=== PATIENT | female | born 1935 | race Caucasian/White ===

== ENCOUNTER 2024-03-24 12:34 | Inpatient (IN) | payer BC, MEDICARE ==
[~2024-03-24] VITALS: Ht 165.1 cm; Wt 52.7 kg
[2024-03-24] MEDS ORDERED: VANCOMYCIN IV 200 ML ONE (13:05)
[2024-03-24] MEDS ORDERED: CEFTRIAXONE /D5W 50ML IVPB **ER PYXIS IV ONE (13:06)
[2024-03-24 13:07] LABS: ABG BASE EXCESS 4.2 mmol/L (-2.0-3.0); ABG HCO3 29.4 mmol/L (21.0-28.0); ABG PCO2 46.5 mmHg (32.0-45.0); ABG PH 7.419 (7.350-7.450); ABG PO2 382.1 mmHg (83.0-108.0); ABG SITE RIGHT RADIAL; ABG TOTAL HEMOGLOBIN 13.1 G/dL (12.0-16.0); AaDO2 99.8 mmHg; COHb 0.2 % (0.5-1.5); MetHb 0.6 % (0.0-1.5)
[2024-03-24 13:12] LABS: BASOPHILS % (AUTO) 0.7 % (0.0-2.0); DIFFERENTIAL COMMENT 1; HEMATOCRIT 36.3 % (31.2-41.9); HEMOGLOBIN 11.9 g/dL (10.9-14.3); LYMPHOCYTES # (AUTO) 0.2 K/uL (0.8-4.8); LYMPHOCYTES % (AUTO) 5.2 % (20.5-51.5); MEAN CORPUSCULAR HEMOGLOBIN 28.8 uug (24.7-32.8); MEAN CORPUSCULAR HGB CONC 33 g/dL (32.3-35.6); MEAN CORPUSCULAR VOLUME 88.2 fL (75.5-95.3); MONOCYTES # (AUTO) 0.6 K/uL (0.1-1.30); NEUTROPHILS # (AUTO) 3.9 K/uL (1.8-8.9); NEUTROPHILS % (AUTO) 81.1 % (38.5-71.5); PLATELET COUNT (AUTO) 194 K/uL (179-408); RED BLOOD CELL COUNT(AUTO) 4.12 MIL/uL (3.63-4.92); RED CELL DISTRIBUTION WIDTH 14.7 % (12.3-17.7); WHITE BLOOD COUNT (AUTO) 4.8 K/uL (3.8-11.8)
[2024-03-24] MEDS: CEFTRIAXONE 2 G in IV DEXTROSE 5% 100 ML IV ONE (13:16)
[2024-03-24] MEDS: IV NORMAL SALINE 1000 ML BAG IV ONE ×2 (13:16→15:53)
[2024-03-24] MEDS ORDERED: AMLO5TAB4 PO (13:19)
[2024-03-24] MEDS ORDERED: ESCI10TA PO (13:19)
[2024-03-24] MEDS ORDERED: GALA16CA PO (13:19)
[2024-03-24] MEDS ORDERED: FLUT1BLS14 IH (13:19)
[2024-03-24] MEDS ORDERED: ALBU2.5V13 IH (13:19)
[2024-03-24] MEDS ORDERED: IPRA12.9 INH (13:19)
[2024-03-24] MEDS ORDERED: LISI40TA13 PO (13:19)
[2024-03-24] MEDS ORDERED: DIGO125T PO (13:19)
[2024-03-24] MEDS ORDERED: [UNRECOGNIZED DRUG - OTHER] PO (13:19)
[2024-03-24] MEDS ORDERED: METO50TA16 PO (13:19)
[2024-03-24] MEDS ORDERED: LEVO75TA7 PO (13:19)
[2024-03-24] MEDS ORDERED: ASPI81TA31 PO (13:19)
[2024-03-24] MEDS ORDERED: CLON2TAB11 PO (13:19)
[2024-03-24] MEDS ORDERED: MEMA10TA PO (13:19)
[2024-03-24] MEDS ORDERED: DOXA2TAB2 PO (13:19)
[2024-03-24] MEDS ORDERED: PANT40TA49 PO (13:19)
[2024-03-24 13:22] LABS: CALCIUM 9.2 mg/dL (8.5-10.1); CARBON DIOXIDE 30 mmol/L (21-32); CHLORIDE 104 mmol/L (98-107); CREATININE 1.2 mg/dL (0.6-1.3); GLUCOSE 135 mg/dL (74-106); POTASSIUM 3.7 mmol/L (3.5-5.1); SODIUM SERUM 144 mmol/L (136-145); UREA NITROGEN, BLOOD 26 mg/dL (7-18)
[2024-03-24 13:36] LABS: ALANINE AMINOTRANSFERASE 21 U/L (14-59); ALBUMIN 2.9 g/dL (3.4-5.0); ALKALINE PHOSPHATASE 90 U/L (50-136); ASPARTATE AMINOTRANSFERASE 37 U/L (15-37); BILIRUBIN,DIRECT 0.2 mg/dL (0.0-0.2); BILIRUBIN,TOTAL 0.4 mg/dL (0.2-1.0); NT-PRO BNP 11237 pg/mL (0-125); TOTAL PROTEIN, SERUM 7.5 g/dL (6.4-8.2)
[2024-03-24] MEDS: VANCOMYCIN IV 1,000 MG in IV DEXTROSE 5% 250 ML IV ONE (14:18)
[2024-03-24] MEDS: METRONIDAZOLE 500 MG/NS 100 ML PIGGYBACK IV ONE (16:10)
[2024-03-24] MEDS ORDERED: METRONIDAZOLE 500 MG/NS 100ML 100 ML IV ONE (16:12)
[2024-03-24] MEDS ORDERED: ACETAMINOPHEN 650 MG SUPP.RECT RC PRN (16:15)
[2024-03-24] MEDS ORDERED: ONDANSETRON 4 MG/2 ML VIAL IV PRN (16:15)
[2024-03-24] MEDS ORDERED: PIPERACILLIN SODIUM IV SCH (18:00)
[2024-03-24] MEDS ORDERED: DEXTROSE 5% IV SCH (18:00)
[2024-03-24] MEDS ORDERED: TAZOBACTAM IV SCH (18:00)
[2024-03-24 20:21] VITALS: BP 124/72; TEMP 99.3; O2SAT 100
[2024-03-24 21:04] VITALS: BP 110/45; TEMP 98.6; O2SAT 95
[2024-03-24] MEDS ORDERED: PIPERACILLIN/TAZOBACTAM/D5W 50 ML IV ONE ×2 (21:07→21:08)
[2024-03-24] MEDS: IV NS 1000 ML 1,000 ML IV PRN (21:22)
[2024-03-24] MEDS: PIPERACILLIN SODIUM/TAZOBACTAM 3.375 G in IV DEXTROSE 5% 100 ML IV SCH (21:25)
[2024-03-25] VITALS (8 sets, daily range): BP systolic 130–168; BP diastolic 52–67; TEMP 97.5–98.9; O2SAT 94–97
[2024-03-25 06:28] LABS: BASOPHILS % (AUTO) 0.7 % (0.0-2.0); HEMATOCRIT 33.3 % (31.2-41.9); HEMOGLOBIN 11.3 g/dL (10.9-14.3); LYMPHOCYTES # (AUTO) 0.4 K/uL (0.8-4.8); LYMPHOCYTES % (AUTO) 12.5 % (20.5-51.5); MEAN CORPUSCULAR HGB CONC 34 g/dL (32.3-35.6); MEAN CORPUSCULAR VOLUME 88.6 fL (75.5-95.3); MONOCYTES # (AUTO) 0.5 K/uL (0.1-1.30); MONOCYTES % (AUTO) 14.4 % (0.0-11.0); NEUTROPHILS # (AUTO) 2.6 K/uL (1.8-8.9); NEUTROPHILS % (AUTO) 72.4 % (38.5-71.5); PLATELET COUNT (AUTO) 176 K/uL (179-408); RED BLOOD CELL COUNT(AUTO) 3.76 MIL/uL (3.63-4.92); RED CELL DISTRIBUTION WIDTH 14.8 % (12.3-17.7); WHITE BLOOD COUNT (AUTO) 3.6 K/uL (3.8-11.8)
[2024-03-25 07:08] LABS: ALANINE AMINOTRANSFERASE 14 U/L (14-59); ALBUMIN 2.4 g/dL (3.4-5.0); ALKALINE PHOSPHATASE 74 U/L (50-136); ASPARTATE AMINOTRANSFERASE 40 U/L (15-37); BILIRUBIN,TOTAL 0.3 mg/dL (0.2-1.0); CARBON DIOXIDE 26 mmol/L (21-32); CHLORIDE 108 mmol/L (98-107); CREATININE 1.1 mg/dL (0.6-1.3); GLUCOSE 86 mg/dL (74-106); POTASSIUM 3.5 mmol/L (3.5-5.1); SODIUM SERUM 143 mmol/L (136-145); TOTAL PROTEIN, SERUM 6.3 g/dL (6.4-8.2); UREA NITROGEN, BLOOD 24 mg/dL (7-18)
[2024-03-25] MEDS ORDERED: FUROSEMIDE 40 MG/4 ML VIAL IV ONE (08:30)
[2024-03-25] MEDS: FUROSEMIDE 40 MG/4 ML VIAL IV ONE (08:52)
[2024-03-25] MEDS: PANTOPRAZOLE SODIUM 40 MG VIAL IV SCH (08:53)
[2024-03-25] MEDS ORDERED: CLON0.5T4 PO (10:22)
[2024-03-25] MEDS ORDERED: METO-356 PO (10:22)
[2024-03-25] MEDS ORDERED: LISI20TA30 PO (10:22)
[2024-03-25] MEDS ORDERED: DOXA1TAB2 PO (10:22)
[2024-03-25] MEDS ORDERED: ALBUTEROL SULFATE 2.5 MG/ 0.5 ML NEBU IH PRN (12:00)
[2024-03-25] MEDS ORDERED: [UNRECOGNIZED DRUG - OTHER] PO SCH (18:00)
[2024-03-25] MEDS: DOXAZOSIN 1 MG TABLET PO SCH (21:00)
[2024-03-25] MEDS: CLONAZEPAM 0.5 MG TABLET PO SCH (21:00)
[2024-03-25] MEDS: VANCOMYCIN HCL 750 MG in IV DEXTROSE 5% 250 ML IV SCH (21:21)
[2024-03-26 03:11] VITALS: BP 155/54; TEMP 97.9; O2SAT 96
[2024-03-26] MEDS: LEVOTHYROXINE SODIUM 75 MCG TABLET PO SCH (06:08)
[2024-03-26] MEDS ORDERED: PANTOPRAZOLE SODIUM 40 MG TABLET.DR PO SCH (07:00)
[2024-03-26 07:03] LABS: BASOPHILS % (AUTO) 0.7 % (0.0-2.0); EOSINOPHILS % (AUTO) 0.1 % (0.0-7.0); HEMATOCRIT 36.7 % (31.2-41.9); HEMOGLOBIN 12.2 g/dL (10.9-14.3); LYMPHOCYTES # (AUTO) 0.6 K/uL (0.8-4.8); LYMPHOCYTES % (AUTO) 14.9 % (20.5-51.5); MEAN CORPUSCULAR HEMOGLOBIN 29.3 uug (24.7-32.8); MEAN CORPUSCULAR HGB CONC 33 g/dL (32.3-35.6); MEAN CORPUSCULAR VOLUME 88.1 fL (75.5-95.3); MONOCYTES # (AUTO) 0.7 K/uL (0.1-1.30); MONOCYTES % (AUTO) 16.1 % (0.0-11.0); NEUTROPHILS # (AUTO) 2.9 K/uL (1.8-8.9); NEUTROPHILS % (AUTO) 68.2 % (38.5-71.5); PLATELET COUNT (AUTO) 166 K/uL (179-408); RED BLOOD CELL COUNT(AUTO) 4.16 MIL/uL (3.63-4.92); RED CELL DISTRIBUTION WIDTH 14.5 % (12.3-17.7); WHITE BLOOD COUNT (AUTO) 4.2 K/uL (3.8-11.8)
[2024-03-26 07:10] LABS: ALANINE AMINOTRANSFERASE 21 U/L (14-59); ALBUMIN 2.5 g/dL (3.4-5.0); ALKALINE PHOSPHATASE 65 U/L (50-136); ASPARTATE AMINOTRANSFERASE 46 U/L (15-37); BILIRUBIN,TOTAL 0.5 mg/dL (0.2-1.0); CALCIUM 8.1 mg/dL (8.5-10.1); CARBON DIOXIDE 28 mmol/L (21-32); CREATININE 1.3 mg/dL (0.6-1.3); GLUCOSE 74 mg/dL (74-106); NT-PRO BNP 2772 pg/mL (0-125); TOTAL PROTEIN, SERUM 6.6 g/dL (6.4-8.2); UREA NITROGEN, BLOOD 25 mg/dL (7-18)
[2024-03-26 07:49] LABS: CHLORIDE 104 mmol/L (98-107); SODIUM SERUM 144 mmol/L (136-145)
[2024-03-26 07:53] VITALS: BP 161/58; TEMP 98.2; O2SAT 98
[2024-03-26] MEDS: POTASSIUM CHLORIDE 50 ML IV SCH (08:54)
[2024-03-26] MEDS: DIGOXIN 125 MCG TABLET PO SCH (08:55)
[2024-03-26] MEDS: ASPIRIN 81 MG TAB.CHEW PO SCH (08:55)
[2024-03-26] MEDS: ESCITALOPRAM OXALATE 10 MG TABLET PO SCH (08:55)
[2024-03-26] MEDS: METOPROLOL SUCCINATE XL 25 MG TAB.SR.24H PO SCH (08:55)
[2024-03-26] MEDS: AMLODIPINE 5 MG TABLET PO SCH (08:55)
[2024-03-26] MEDS: MEMANTINE HCL 10 MG TABLET PO SCH (08:55)
[2024-03-26] MEDS: LISINOPRIL 20 MG TABLET PO SCH (08:55)
[2024-03-26 09:26] LABS: LYMPHOCYTES % (MANUAL) 11 % (20-40); MONOCYTES % (MANUAL) 12 % (2-10); NEUTROPHILS % (MANUAL) 77 % (42-75); PLATELET ESTIMATE ADEQUATE
[2024-03-26 10:15] VITALS: O2SAT 98
[2024-03-26 11:43] VITALS: BP 148/54; TEMP 98.1; O2SAT 97
[2024-03-26] MEDS ORDERED: FUROSEMIDE 20 MG/2 ML VIAL IV SCH (11:45)
[2024-03-26] MEDS: FUROSEMIDE 40 MG/4 ML VIAL IV SCH (11:54)
[2024-03-26 13:42] LABS: *BILIRUBIN,URIN NEGATIVE (NEGATIVE); *BLOOD, URINE 2+ (NEGATIVE); *CLARITY,URINE CLEAR (CLEAR); *COLOR,URINE YELLOW (YELLOW); *KETONES,URINE 1+ (NEGATIVE); *PROTEIN,URINE 2+ (NEGATIVE); *UROBILINOGEN,URINE 0.2 E.U./dl (NORMAL); LEUKOCYTE ESTERASE ,URINE NEGATIVE (NEGATIVE); NITRITE, URINE NEGATIVE (NEGATIVE); PH,URINE 5.5 (5.0-8.0); UGLUCOSE NEGATIVE (NEGATIVE)
[2024-03-26 13:51] LABS: RBC,URINE 20-50 /HPF (0-3); WBC,URINE 0-3 /HPF (0-3)
[2024-03-26 13:52] LABS: BACTERIA,URINE FEW /HPF (NONE SEEN); SQUAMOUS EPITHELIAL CELL,UR FEW /HPF (NONE SEEN)
[2024-03-26 15:44] VITALS: BP 133/74; TEMP 97.9; O2SAT 96
[2024-03-26 19:00] VITALS: BP 153/64; TEMP 98.2; O2SAT 95
[2024-03-27 06:00] VITALS: BP 149/56; TEMP 97.7; O2SAT 97
[2024-03-27 06:52] LABS: BASOPHILS % (AUTO) 0.6 % (0.0-2.0); EOSINOPHILS % (AUTO) 0.1 % (0.0-7.0); HEMATOCRIT 38.6 % (31.2-41.9); HEMOGLOBIN 12.9 g/dL (10.9-14.3); LYMPHOCYTES # (AUTO) 0.8 K/uL (0.8-4.8); LYMPHOCYTES % (AUTO) 15.7 % (20.5-51.5); MEAN CORPUSCULAR HEMOGLOBIN 29.2 uug (24.7-32.8); MEAN CORPUSCULAR HGB CONC 33 g/dL (32.3-35.6); MEAN CORPUSCULAR VOLUME 87.6 fL (75.5-95.3); MONOCYTES # (AUTO) 0.8 K/uL (0.1-1.30); MONOCYTES % (AUTO) 15.3 % (0.0-11.0); NEUTROPHILS # (AUTO) 3.5 K/uL (1.8-8.9); NEUTROPHILS % (AUTO) 68.3 % (38.5-71.5); PLATELET COUNT (AUTO) 140 K/uL (179-408); RED BLOOD CELL COUNT(AUTO) 4.41 MIL/uL (3.63-4.92); RED CELL DISTRIBUTION WIDTH 14.7 % (12.3-17.7); WHITE BLOOD COUNT (AUTO) 5.1 K/uL (3.8-11.8)
[2024-03-27 07:20] LABS: DIFFERENTIAL COMMENT 1
[2024-03-27 07:42] LABS: CALCIUM 8.4 mg/dL (8.5-10.1); CARBON DIOXIDE 29 mmol/L (21-32); CHLORIDE 102 mmol/L (98-107); CREATININE 1.4 mg/dL (0.6-1.3); GLUCOSE 147 mg/dL (74-106); POTASSIUM 3.6 mmol/L (3.5-5.1); SODIUM SERUM 143 mmol/L (136-145); UREA NITROGEN, BLOOD 26 mg/dL (7-18)
[2024-03-27 09:39] LABS: LYMPHOCYTES % (MANUAL) 21 % (20-40); MONOCYTES % (MANUAL) 12 % (2-10); NEUTROPHILS % (MANUAL) 67 % (42-75); PLATELET ESTIMATE DECREASED
[2024-03-27 12:00] VITALS: BP 154/73; TEMP 98.3; O2SAT 95
[2024-03-27] MEDS ORDERED: PIPERACILLIN SODIUM/TAZOBACTAM 3.375 G in IV DEXTROSE 5% 50 ML IV SCH (12:00)
[2024-03-27] MEDS: PIPERACILLIN/TAZO 2.25 G in IV DEXTROSE 5% 50 ML IV SCH (12:10)
[2024-03-27] MEDS ORDERED: MAGNESIUM HYDROXIDE 30 ML LIQUID UDC PO PRN (15:30)
[2024-03-27 16:32] VITALS: O2SAT 87
[2024-03-27 19:00] VITALS: BP 135/54; TEMP 98; O2SAT 94
[2024-03-27 21:43] VITALS: O2SAT 98
[2024-03-28 06:00] VITALS: BP 110/62; TEMP 97.7; O2SAT 95
[2024-03-28] MEDS: PANTOPRAZOLE ORAL SUSPENSION 40 MG SUSPDR.PKT PO SCH (06:21)
[2024-03-28 07:52] LABS: BASOPHILS % (AUTO) 0.3 % (0.0-2.0); HEMATOCRIT 38.5 % (31.2-41.9); HEMOGLOBIN 12.9 g/dL (10.9-14.3); LYMPHOCYTES # (AUTO) 0.7 K/uL (0.8-4.8); LYMPHOCYTES % (AUTO) 10.1 % (20.5-51.5); MEAN CORPUSCULAR HEMOGLOBIN 29.1 uug (24.7-32.8); MEAN CORPUSCULAR HGB CONC 34 g/dL (32.3-35.6); MONOCYTES # (AUTO) 0.7 K/uL (0.1-1.30); NEUTROPHILS # (AUTO) 5.8 K/uL (1.8-8.9); NEUTROPHILS % (AUTO) 80.6 % (38.5-71.5); PLATELET COUNT (AUTO) 134 K/uL (179-408); RED BLOOD CELL COUNT(AUTO) 4.43 MIL/uL (3.63-4.92); RED CELL DISTRIBUTION WIDTH 14.9 % (12.3-17.7); WHITE BLOOD COUNT (AUTO) 7.2 K/uL (3.8-11.8)
[2024-03-28 08:01] LABS: DIFFERENTIAL COMMENT 1
[2024-03-28 08:10] LABS: CALCIUM 8.2 mg/dL (8.5-10.1); CARBON DIOXIDE 31 mmol/L (21-32); CHLORIDE 99 mmol/L (98-107); CREATININE 1.4 mg/dL (0.6-1.3); GLUCOSE 131 mg/dL (74-106); POTASSIUM 2.8 mmol/L (3.5-5.1); SODIUM SERUM 141 mmol/L (136-145); UREA NITROGEN, BLOOD 28 mg/dL (7-18)
[2024-03-28] MEDS: POTASSIUM CHLORIDE 50 ML IV SCH (08:53)
[2024-03-28] MEDS: POTASSIUM CHLORIDE 20 MEQ TAB.PRT.SR PO ONE (08:58)
[2024-03-28] MEDS: POTASSIUM CHLORIDE 20 MEQ POWDER PACKET PO ONE (08:58)
[2024-03-28] MEDS ORDERED: ALBUTEROL SULFATE 1.25 MG/3 ML NEBU NEB PRN (09:15)
[2024-03-28] MEDS ORDERED: IPRATROPIUM BROMIDE 0.5 MG/2.5 ML NEBU NEB PRN (09:15)
[2024-03-28 11:48] VITALS: BP 135/61; TEMP 97.4; O2SAT 96
[2024-03-28] MEDS ORDERED: POTASSIUM CHLORIDE 20 MEQ TAB.PRT.SR PO ONE (12:00)
[2024-03-28] MEDS: PIPERACILLIN SODIUM/TAZOBACTAM 3.375 G in IV DEXTROSE 5% 100 ML IV SCH (13:41)
[2024-03-28 14:22] LABS: CALCIUM 8.4 mg/dL (8.5-10.1); CARBON DIOXIDE 30 mmol/L (21-32); CHLORIDE 102 mmol/L (98-107); CREATININE 1.3 mg/dL (0.6-1.3); GLUCOSE 120 mg/dL (74-106); POTASSIUM 3.6 mmol/L (3.5-5.1); SODIUM SERUM 142 mmol/L (136-145); UREA NITROGEN, BLOOD 29 mg/dL (7-18)
[2024-03-28 15:40] VITALS: BP 157/65; TEMP 97.7; O2SAT 95
[2024-03-28] MEDS: ENSURE ENLIVE (VAN) 240 ML LIQUID PO SCH (16:05)
[2024-03-28 19:00] VITALS: BP 153/83; TEMP 97.9; O2SAT 95
[2024-03-29 06:00] VITALS: BP 139/76; TEMP 97.8; O2SAT 93
[2024-03-29 07:06] LABS: BASOPHILS % (AUTO) 0.7 % (0.0-2.0); EOSINOPHILS % (AUTO) 0.4 % (0.0-7.0); HEMATOCRIT 38.2 % (31.2-41.9); HEMOGLOBIN 12.8 g/dL (10.9-14.3); LYMPHOCYTES % (AUTO) 20.6 % (20.5-51.5); MEAN CORPUSCULAR HGB CONC 34 g/dL (32.3-35.6); MEAN CORPUSCULAR VOLUME 86.3 fL (75.5-95.3); MONOCYTES # (AUTO) 0.5 K/uL (0.1-1.30); MONOCYTES % (AUTO) 10.3 % (0.0-11.0); NEUTROPHILS # (AUTO) 3.5 K/uL (1.8-8.9); PLATELET COUNT (AUTO) 149 K/uL (179-408); RED BLOOD CELL COUNT(AUTO) 4.42 MIL/uL (3.63-4.92); RED CELL DISTRIBUTION WIDTH 14.7 % (12.3-17.7); WHITE BLOOD COUNT (AUTO) 5.1 K/uL (3.8-11.8)
[2024-03-29 07:13] LABS: DIFFERENTIAL COMMENT 1
[2024-03-29 07:22] LABS: CALCIUM 8.3 mg/dL (8.5-10.1); CARBON DIOXIDE 32 mmol/L (21-32); CHLORIDE 101 mmol/L (98-107); CREATININE 1.4 mg/dL (0.6-1.3); GLUCOSE 104 mg/dL (74-106); SODIUM SERUM 142 mmol/L (136-145); UREA NITROGEN, BLOOD 27 mg/dL (7-18)
[2024-03-29] MEDS ORDERED: PSYL575P22 PO (10:25)
[2024-03-29] MEDS ORDERED: AMOX-430 PO (10:32)
[2024-03-29 11:17] VITALS: BP 135/45; TEMP 97.6; O2SAT 93
== END 2024-03-29 12:45 | DRG 871 ==
LOC: ER 12:34 → TELE3 20:05 → MEDSURG3 03-26 10:07
PROVIDERS: ADMIT Internal Medicine; ATTEND Internal Medicine
DX: A41.9 Sepsis, unspecified organism (principal); G93.41 Metabolic encephalopathy; J15.9 Unspecified bacterial pneumonia; I21.A1 Myocardial infarction type 2; I50.33 Acute on chronic diastolic (congestive) heart failure; J44.0 Chronic obstructive pulmonary disease with (acute) lower respiratory infection; N17.9 Acute kidney failure, unspecified; I48.20 Chronic atrial fibrillation, unspecified; I11.0 Hypertensive heart disease with heart failure; K56.41 Fecal impaction; D63.8 Anemia in other chronic diseases classified elsewhere; E03.9 Hypothyroidism, unspecified; R19.04 Left lower quadrant abdominal swelling, mass and lump; K82.8 Other specified diseases of gallbladder; K76.9 Liver disease, unspecified; E86.0 Dehydration; E87.6 Hypokalemia; F03.90 Unspecified dementia, unspecified severity, without behavioral disturbance, psychotic disturbance, mood disturbance, and anxiety; E78.5 Hyperlipidemia, unspecified; I25.10 Atherosclerotic heart disease of native coronary artery without angina pectoris; R09.02 Hypoxemia; R65.20 Severe sepsis without septic shock; Z88.6 Allergy status to analgesic agent; Z88.1 Allergy status to other antibiotic agents; Z91.81 History of falling; Z79.890 Hormone replacement therapy; Z79.899 Other long term (current) drug therapy
CPT/HCPCS: 36415; 36600; 70030-TC; 70450; 71045; 82803; 83605; 84484; 85025; 85730; 87040; 93307; A4606; A4663; A6213; G0378; J0696; J1940; J2470; J2543; J3370; J3480; J3490; J7040; J7050